=== PATIENT | male | born 1950 | race Two or more races ===

== ENCOUNTER 2019-11-22 11:29 | Emergency (ER) | payer OTHER ==
[2019-11-22 13:23] VITALS: BP 133/56
[2019-11-22] MEDS ORDERED: METHOCARBAMOL 500 MG TAB PO ONE (14:45)
[2019-11-22] MEDS ORDERED: IBUPROFEN 600 MG TAB PO ONE (14:45)
== END 2019-11-22 15:08 | disposition home or self-care (01) ==
LOC: ER 11:29
DX: S01.81XA Laceration without foreign body of other part of head, initial encounter (principal); S20.222A Contusion of left back wall of thorax, initial encounter; S20.221A Contusion of right back wall of thorax, initial encounter; V98.8XXA Other specified transport accidents, initial encounter; Y93.89 Activity, other specified; Y92.89 Other specified places as the place of occurrence of the external cause; Y99.0 Civilian activity done for income or pay
CPT/HCPCS: 70450